=== PATIENT | female | born 1990 | race Caucasian/White ===

== ENCOUNTER → 2018-09-09 | Outpatient (CLI) | payer BC | LOC: FIMAGING 07:13 | PROVIDERS: ATTEND Obstetrics & Gynecology | DX: O09.892 Supervision of other high risk pregnancies, second trimester (principal); Z3A.24 24 weeks gestation of pregnancy ==

== ENCOUNTER → 2018-10-28 | Outpatient (CLI) | payer BC | LOC: FIMAGING 13:02 ==